=== PATIENT | female | born 1945 | race Caucasian/White ===

== ENCOUNTER 2021-08-03 18:09 | Inpatient (IN) | payer OTHER, MEDICAID, SELFPAY ==
[~2021-08-03] VITALS: Ht 154.9 cm; Wt 69.4 kg
[2021-08-03 18:30] VITALS: BP_SYST 156
--- NOTE | 2021-08-03 18:30 | NUR ---
Patient to ER bed 3 to for evaluation. Side rails up. Report given to Malissa.
--- NOTE | 2021-08-03 18:52 | NUR ---
PT CHARMAINE FROM [facility] FOR RUQ ABD PAIN PER PT SINCE 11AM PT DENIES N/V/D. PT IS AAOX4, V/S STABLE UPON ARRIVAL
--- NOTE | 2021-08-03 18:55 | NUR ---
ER DR. VIRK AT BEDSIDE EXAMINNG PT
--- NOTE | 2021-08-03 19:08 | NUR ---
REPORT GIVEN TO ELBERT MOY FOR CONTINUING CARE
--- NOTE | 2021-08-03 19:20 | NUR ---
# 20 gauge angiocath placed to RAC. Use of asceptic technique. Opsite placed over site. Blood return noted. Blood for lab drawn from site. Flushed with 10 cc of normal saline. No evidence of infiltration noted. Patient tolerated well.
--- NOTE | 2021-08-03 19:24 | NUR ---
COVID-19 swabs collected and sent to lab.
[2021-08-03] MEDS ORDERED: MECL-108 PO (19:36)
[2021-08-03] MEDS ORDERED: METO25TA6 PO (19:36)
[2021-08-03] MEDS ORDERED: METF-834 PO (19:36)
[2021-08-03] MEDS ORDERED: HYDR25TA4 PO (19:36)
[2021-08-03] MEDS ORDERED: DOCU-144 PO (19:36)
[2021-08-03] MEDS ORDERED: LISI20TA30 PO (19:36)
[2021-08-03] MEDS ORDERED: HEPA500015 SUBCUT (19:36)
[2021-08-03] MEDS ORDERED: ACET325T53 PO (19:36)
[2021-08-03] MEDS ORDERED: HYD500 PO (19:36)
[2021-08-03] MEDS ORDERED: PANT20TA2 PO (19:36)
--- NOTE | 2021-08-03 19:36 | NUR ---
Medication reconciliation completed with information provided by patient's documents. Any prior medication reconciliation on file was reviewed and corrected.
[2021-08-03 19:51] LABS: ANION GAP 9 (5-15); CALCIUM 9.4 mg/dL (8.4-11.0); CREATININE 1.21 mg/dL (0.55-1.30); GLUCOSE 120 mg/dL (70-99); POTASSIUM 4.8 mmol/L (3.5-5.1); UREA NITROGEN, BLOOD 22 mg/dL (8-21)
[2021-08-03 19:55] LABS: CHLORIDE 81 mmol/L (98-107); SODIUM SERUM 113 mmol/L (136-145)
[2021-08-03 19:56] LABS: ALANINE AMINOTRANSFERASE 28 U/L (12-78); ASPARTATE AMINOTRANSFERASE 22 U/L (10-37); TOTAL BILIRUBIN 0.4 mg/dL (0.0-1.0)
[2021-08-03 19:57] LABS: ALBUMIN 3.9 g/dL (3.4-4.8); LIPASE 517 U/L (73-393)
[2021-08-03 20:26] LABS: BASOPHILS # (AUTO) 0.1 K/uL (0.0-0.2); LYMPHOCYTES # (AUTO) 1.6 K/uL (1.0-5.5); LYMPHOCYTES % (AUTO) 21.6 % (20.5-51.5); MONOCYTES # (AUTO) 0.5 K/uL (0.0-1.0); NEUTROPHILS # (AUTO) 5.1 K/uL (1.8-7.7); NEUTROPHILS % (AUTO) 68.5 % (40.0-70.0); RED BLOOD CELL COUNT(AUTO) 2.63 MIL/uL (4.2-6.2); WHITE BLOOD COUNT (AUTO) 7.5 K/uL (4.8-10.8)
[2021-08-03 20:35] LABS: BASOPHILS % (AUTO) 0.7 % (0.0-2.0); EOSINOPHILS # (AUTO) 0.1 K/uL (0.0-0.4); HEMATOCRIT 25.3 % (36-48); HEMOGLOBIN 9.1 g/dL (12.0-16.0); MEAN CORPUSCULAR HEMOGLOBIN 35 pg (27-31); MEAN CORPUSCULAR HGB CONC 36 % (32-36); MEAN CORPUSCULAR VOLUME 96 fL (79.0-98.0); MONOCYTES % (AUTO) 7.2 % (1.7-9.3); PLATELET COUNT (AUTO) 575 K/uL (130-430); RED CELL DISTRIBUTION WIDTH 19.2 % (9.0-15.0)
[2021-08-03] MEDS ORDERED: NACL 0.9% 1,000 ML IV ONE (20:45)
--- NOTE | 2021-08-03 20:47 | NUR ---
Marilyn briseno in [facility] - 08/03/21 at 2301 by [email or web address] COVID-19 swabs collected and sent to lab.
--- NOTE | 2021-08-03 21:25 | NUR ---
Returned from radiology, back to [facility].
--- NOTE | 2021-08-03 22:21 | NUR ---
ER Dr. Mcgregor at bedside examining patient.
--- NOTE | 2021-08-03 22:30 | NUR ---
Re-position patient
[2021-08-03] MEDS ORDERED: SODIUM CHLORIDE 3% *HI-ALERT* 500 ML IV ONE (23:45)
[2021-08-03] MEDS ORDERED: DEXTROSE 50% JECT 50 ML DISP.SYRIN IVP PRN (23:45)
[2021-08-04] VITALS (7 sets, daily range): BP systolic 127–152
[2021-08-04] MEDS ORDERED: ACETAMINOPHEN 325 MG TABLET PO PRN
[2021-08-04] MEDS ORDERED: MECLIZINE HCL 25 MG TABLET (ANITVERT) PO PRN
--- NOTE | 2021-08-04 00:05 | NUR ---
Patient will be admitted to care of Dr. Fox. Admitted to TELE unit. Will go to room 112B. Belongings list completed. Complete and up to date summary report printed. SBAR report to be given at bedside with opportunity for questions.
[2021-08-04] MEDS ORDERED: cloNIDine HCL 0.1 MG TABLET PO PRN (00:15)
--- NOTE | 2021-08-04 00:40 | NUR ---
ADMISSION NOTE Received patient from ER via michaelrelliott, received report from DECEMBER RN. Patient admitted with diagnosis of ABDOMINAL PAIN. Patient oriented to hospital routine, call light, toileting and safety-patient verbalized understanding.
[2021-08-04] MEDS ORDERED: SODIUM CHLORIDE 3% *HI-ALERT* 500 ML IV ONE (01:33)
--- NOTE | 2021-08-04 01:55 | NUR ---
INITIAL NOTES PATIENT RESTING, NO SIGNS OF NOTED. CALL LIGHT WITHIN REACH, BED ALARM ON, BED AT LOWEST POSITION, BED LOCKED. FALL, RESPIRATORY, ASPIRATORY, ISOLATION AND SAFETY PRECAUTIONS IN PLACE. DISCUSSED PLAN OF CARE WITH PATIENT, WILL CONTINUE TO MONITOR.
[2021-08-04] MEDS: HEPARIN SODIUM,PORCINE 5,000 UNITS/ML VIAL SUBCUT SCH ×3 (06:29→21:22)
--- NOTE | 2021-08-04 06:59 | NUR ---
CLOSING NOTES PATIENT RESTING, NO SIGNS OF NOTED. CALL LIGHT WITHIN REACH, BED ALARM ON, BED AT LOWEST POSITION, BED LOCKED. FALL, RESPIRATORY, ASPIRATORY, ISOLATION AND SAFETY PRECAUTIONS IN PLACE THROUGHOUT SHIFT. WILL ENDORSE CARE TO ONCOMING SHIFT.
[2021-08-04 07:01] LABS: BASOPHILS # (AUTO) 0.1 K/uL (0.0-0.2); EOSINOPHILS # (AUTO) 0.2 K/uL (0.0-0.4); EOSINOPHILS % (AUTO) 3.7 % (0.0-4.0); HEMATOCRIT 23.3 % (36-48); HEMOGLOBIN 8.4 g/dL (12.0-16.0); LYMPHOCYTES # (AUTO) 1.4 K/uL (1.0-5.5); LYMPHOCYTES % (AUTO) 25.8 % (20.5-51.5); MEAN CORPUSCULAR HEMOGLOBIN 35 pg (27-31); MEAN CORPUSCULAR HGB CONC 36 % (32-36); MEAN CORPUSCULAR VOLUME 97 fL (79.0-98.0); MONOCYTES # (AUTO) 0.5 K/uL (0.0-1.0); MONOCYTES % (AUTO) 9.2 % (1.7-9.3); NEUTROPHILS # (AUTO) 3.3 K/uL (1.8-7.7); NEUTROPHILS % (AUTO) 60.3 % (40.0-70.0); PLATELET COUNT (AUTO) 552 K/uL (130-430); RED BLOOD CELL COUNT(AUTO) 2.39 MIL/uL (4.2-6.2); RED CELL DISTRIBUTION WIDTH 18.6 % (9.0-15.0); WHITE BLOOD COUNT (AUTO) 5.4 K/uL (4.8-10.8)
[2021-08-04 07:35] LABS: ALANINE AMINOTRANSFERASE 28 U/L (12-78); ALBUMIN 3.3 g/dL (3.4-4.8); AMYLASE 82 U/L (0-100); ANION GAP 7 (5-15); ASPARTATE AMINOTRANSFERASE 26 U/L (10-37); CALCIUM 8.6 mg/dL (8.4-11.0); CHLORIDE 90 mmol/L (98-107); CREATININE 1.11 mg/dL (0.55-1.30); GLUCOSE 103 mg/dL (70-99); LIPASE 541 U/L (73-393); POTASSIUM 4.5 mmol/L (3.5-5.1); TOTAL BILIRUBIN 0.5 mg/dL (0.0-1.0); UREA NITROGEN, BLOOD 19 mg/dL (8-21)
[2021-08-04] MEDS ORDERED: DOCUSATE SODIUM 100 MG CAPSULE PO SCH (09:00)
[2021-08-04] MEDS ORDERED: HYDROXYUREA 500 MG CAPSULE (HYDREA) PO SCH (09:00)
[2021-08-04] MEDS: METOPROLOL TARTRATE 25 MG TABLET PO SCH (09:46)
[2021-08-04] MEDS: PANTOPRAZOLE SODIUM 40 MG TAB PO SCH (09:47)
--- NOTE | 2021-08-04 12:18 | NUR ---
Nutrition Update Daniel Scale 15 noted. Pt admitted for hyponatremia w/ acute loss of consciousness. Diet: mechanical soft, CCHO low carb-45 gm BMI: 28.9 kg/m2 RD to follow per nutrition care standards.
[2021-08-04] MEDS ORDERED: MILK OF MAGNESIA 30 ML UDC PO PRN (15:15)
--- NOTE | 2021-08-04 15:45 | NUR ---
Nursing Late Entry due to patient care: 08:00 In bed eyes open. patient speaks Burundian. Does not appear to be in any form of distress. plan of care discussed with patient. will need to follow up to re educate Addendum: 08/04/21 at 1549 by Susan Winston RN 12:00 - remains comfortable. 3% sodium at 3o ml one time dose completed and discontinued. 15:00 - in and out catheterization done aseptic technique to collect urine sample as patient is incontinent
[2021-08-04 16:19] LABS: SODIUM SERUM 122 mmol/L (136-145)
[2021-08-04 18:34] LABS: BILIRUBIN,URINE NEGATIVE (NEGATIVE); BLOOD, URINE NEGATIVE (NEGATIVE); CLARITY/URINE CLEAR (CLEAR); COLOR,URINE YELLOW (YELLOW); GLUCOSE,URINE NEGATIVE (NEGATIVE); KETONES,URINE NEGATIVE (NEGATIVE); NITRITE, URINE NEGATIVE (NEGATIVE); PROTEIN URINE NEGATIVE (NEGATIVE); UROBILINOGEN,URINE 0.2 (0.2-1.0)
[2021-08-04 18:43] LABS: LEUKOCYTE ESTERASE ,URINE TRACE (NEGATIVE)
[2021-08-04 18:44] LABS: BACTERIA,URINE FEW /HPF (None Seen); MUCUS,URINE None Seen /LPF (None Seen); RBC,URINE 0-3 /HPF (0-3)
--- NOTE | 2021-08-04 19:15 | NUR ---
change of shift.pt.presents quiescent affect calm resting viewing tv programming.language barrier extant.pt[s primary langugae pitcairn islander.pt.stated she prefers to communicate pitcairn islander.pt.presents iv access location lt.forearm iv lock.no c/o pain,nausea.general status stable.respiratory status stable unlabored@room air.call light/telephone w/in access of the pt.
--- NOTE | 2021-08-04 19:34 | NUR ---
Pt has been stable then since took over of care . all needs met and attended kaylin. endorsed to night rn.
--- NOTE | 2021-08-04 20:00 | NUR ---
pt.assessed.v/s assessed values wnl;no c/o pain,nausea.i have apprised the pt.that snacks/beverages are available w/in the shift. no requests posited@this hour.pt.assessed for cleanliness pt.repositioned.call light/telephone placed w/in access of the pt.
--- NOTE | 2021-08-04 20:30 | NUR ---
blood glucose assessed value:232mg/dl.
--- NOTE | 2021-08-04 21:00 | NUR ---
2100p medications administered.pt.capable to ingest the po medications w/out difficulty.no c/o pain,nausea.call light/telephone w/in access of the pt.
[2021-08-04] MEDS: DOCUSATE SODIUM 100 MG CAPSULE PO SCH (21:17)
[2021-08-04] MEDS: INSULIN REGULAR, HUMAN 100 UNITS/ML, 10 ML VIAL (humuLIN R) SUBCUT PRN (21:21)
--- NOTE | 2021-08-04 22:00 | NUR ---
pt.assessed.pt.had requested medication cough. paged r/e:pt's requests;medication cough.no c/o pain,nausea. no requests posited@this hour.pt.assessed for cleanliness. pt.repositioned.call light/telephone placed w/in access of the pt.
--- NOTE | 2021-08-04 22:01 | NUR ---
PAGED FOR ORDERS SPOKE TO: DIDIER
[2021-08-04] MEDS ORDERED: guaiFENesin/DEXTROMETHORPHAN 10 ML UDC PO PRN (22:15)
[2021-08-04] MEDS ORDERED: guaiFENesin/DEXTROMETHORPHAN 118 ML PO PRN (22:15)
--- NOTE | 2021-08-04 22:15 | NUR ---
apprised of the pt's requests medication;cough. ordered robitussin dm po 10ml q-6hrs/p;cough.i have administered robitussin.to assess the efficacy of the medication per protocol.
[2021-08-05] VITALS: BP_SYST 148
--- NOTE | 2021-08-05 | NUR ---
pt.assessed.v/s assessed values wnl.no c/o pain,nausea.pt.requested water provided.pt.assessed for cleanliness pt.repositioned.call light/telephone placed w/in access of the pt.
--- NOTE | 2021-08-05 02:00 | NUR ---
pt.assessed.pt.presents quiescent affect calm somnolent per flacc pain mgx pt.absent facial grimaces/body posturing. pt.assessed for cleanliness.pt.repositioned.call light/telephone placed w/in access of the pt.
--- NOTE | 2021-08-05 04:00 | NUR ---
pt.assessed.pt.presents quiescent affect calm,somnolent.per flacc pain mgx pt.absent facial grimaces/body posturing. pt.assessed for cleanliness.pt.repositioned.call light/telephone placed w/in access of the pt.
--- NOTE | 2021-08-05 06:00 | NUR ---
pt.assessed.no c/o pain nausea.pt.repositioned.call light/telephone placed w/in access of the pt.
[2021-08-05] MEDS: HEPARIN SODIUM,PORCINE 5,000 UNITS/ML VIAL SUBCUT SCH ×3 (06:55→21:12)
[2021-08-05 06:57] LABS: BASOPHILS # (AUTO) 0.1 K/uL (0.0-0.2); BASOPHILS % (AUTO) 0.9 % (0.0-2.0); EOSINOPHILS # (AUTO) 0.2 K/uL (0.0-0.4); EOSINOPHILS % (AUTO) 3.8 % (0.0-4.0); HEMATOCRIT 26.7 % (36-48); HEMOGLOBIN 9.4 g/dL (12.0-16.0); LYMPHOCYTES # (AUTO) 1.5 K/uL (1.0-5.5); LYMPHOCYTES % (AUTO) 26.7 % (20.5-51.5); MEAN CORPUSCULAR HEMOGLOBIN 34 pg (27-31); MEAN CORPUSCULAR HGB CONC 35 % (32-36); MEAN CORPUSCULAR VOLUME 98 fL (79.0-98.0); MONOCYTES # (AUTO) 0.6 K/uL (0.0-1.0); MONOCYTES % (AUTO) 10.5 % (1.7-9.3); NEUTROPHILS # (AUTO) 3.4 K/uL (1.8-7.7); NEUTROPHILS % (AUTO) 58.1 % (40.0-70.0); PLATELET COUNT (AUTO) 568 K/uL (130-430); RED BLOOD CELL COUNT(AUTO) 2.73 MIL/uL (4.2-6.2); RED CELL DISTRIBUTION WIDTH 18.8 % (9.0-15.0); WHITE BLOOD COUNT (AUTO) 5.8 K/uL (4.8-10.8)
[2021-08-05 07:24] LABS: ALANINE AMINOTRANSFERASE 26 U/L (12-78); ALBUMIN 3.3 g/dL (3.4-4.8); ANION GAP 6 (5-15); ASPARTATE AMINOTRANSFERASE 20 U/L (10-37); CHLORIDE 89 mmol/L (98-107); CHOLESTEROL 169 mg/dL (<200); CREATININE 1.12 mg/dL (0.55-1.30); FREE T4 (FREE THYROXINE) 0.8 ng/dL (0.6-1.6); GLUCOSE 119 mg/dL (70-99); HDL CHOLESTEROL 51 mg/dL (>55); LDL CHOLESTEROL 91 mg/dL (<100); LIPASE 811 U/L (73-393); POTASSIUM 4.7 mmol/L (3.5-5.1); SODIUM SERUM 120 mmol/L (136-145); TOTAL BILIRUBIN 0.1 mg/dL (0.0-1.0); TRIGLYCERIDES 113 mg/dL (30-150); UREA NITROGEN, BLOOD 18 mg/dL (8-21)
--- NOTE | 2021-08-05 07:40 | NUR ---
OPENING NOTE Received shift report from warehouse supervisor 3rd shift RN. Patient currently resting in bed and respirations remain even and non-labored on room air. IV is patent and saline-locked. Bed locked in lowest position and call light is within reach. Will continue to monitor.
[2021-08-05 07:59] LABS: TOTAL IRON BIND. CAPACITY 292 ug/dL (250-450)
[2021-08-05 08:03] VITALS: BP_SYST 134
[2021-08-05] MEDS: METOPROLOL TARTRATE 25 MG TABLET PO SCH (09:48)
[2021-08-05] MEDS: DOCUSATE SODIUM 100 MG CAPSULE PO SCH ×2 (09:48→21:11)
[2021-08-05] MEDS: PANTOPRAZOLE SODIUM 40 MG TAB PO SCH (09:48)
[2021-08-05] MEDS: INSULIN REGULAR, HUMAN 100 UNITS/ML, 10 ML VIAL (humuLIN R) SUBCUT PRN ×3 (10:59→21:13)
[2021-08-05] MEDS ORDERED: SODIUM CHLORIDE 500 MG TABLET PO ONE (14:00)
[2021-08-05 15:28] LABS: ANION GAP 9 (5-15); CALCIUM 8.9 mg/dL (8.4-11.0); CHLORIDE 91 mmol/L (98-107); CREATININE 1.16 mg/dL (0.55-1.30); GLUCOSE 150 mg/dL (70-99); SODIUM SERUM 124 mmol/L (136-145); UREA NITROGEN, BLOOD 19 mg/dL (8-21)
[2021-08-05 16:00] VITALS: BP_SYST 160
[2021-08-05] MEDS: SODIUM CHLORIDE 500 MG TABLET PO SCH ×2 (16:36→21:11)
--- NOTE | 2021-08-05 19:13 | NUR ---
CLOSING NOTE Patient currently resting in bed and respirations remain even and non-labored on room air. IV is patent and saline-locked. Bed locked in lowest position and call light is within reach. All needs met throughout shift. Will endorse to shift supervisor melting RN.
--- NOTE | 2021-08-05 19:50 | NUR ---
OPENING NOTED PATIENT RESTING IN BED WITH NOTED SIGNS OF DISTRESS. SHE IS ON ROOM WITH IS NO SIGNS OF LABORED BREATHING. PATIENT WAS GIVEN INFORMATION ON STAFFING FOR THE NIGHT ALONG WITH CALL LIGHT. SIDE RAIL OF THE BED UP AND BED PLACED IN THE LOWEST POSITION.
[2021-08-05 20:00] VITALS: BP_SYST 117
--- NOTE | 2021-08-05 20:40 | NUR ---
MEDICATION VITALS TAKEN AND MEDICATION WAS GIVEN. PATIENT REQUIRES PILLS TO BE GIVEN ONE AT A TIME WITH MULTIPLE SIPS OF WATER GIVEN BETWEEN EACH PILL. TOLERATED PILLS WITH NO ISSUES.
[2021-08-05] MEDS ORDERED: SODIUM CHLORIDE 500 MG TABLET PO SCH (21:00)
[2021-08-06] VITALS: BP_SYST 139
--- NOTE | 2021-08-06 00:20 | NUR ---
HOURLY CHECKS PATIENT CHECKED ON EVERY HOUR NOTED TO BE RESTING IN BED. MIDNIGHT VITALS TAKEN AND NOTED TO BE WITHIN NORMAL LIMITS.
[2021-08-06 00:39] VITALS: BP_SYST 161
[2021-08-06] MEDS: HEPARIN SODIUM,PORCINE 5,000 UNITS/ML VIAL SUBCUT SCH ×3 (06:00→23:10)
--- NOTE | 2021-08-06 06:04 | NUR ---
CLOSING NOTE PATIENT RESTING IN BED NO NOTED SIGNS OF DISTRESS. BS WAS 158 WITH NO COVERAGE NEEDED. TOLERATED ALL TREATMENT AND PATIENT WAS SHANTEL TO FALL BACK ASLEEP.
[2021-08-06 07:37] LABS: BASOPHILS # (AUTO) 0.1 K/uL (0.0-0.2); BASOPHILS % (AUTO) 0.9 % (0.0-2.0); EOSINOPHILS # (AUTO) 0.2 K/uL (0.0-0.4); EOSINOPHILS % (AUTO) 3.7 % (0.0-4.0); HEMATOCRIT 25.8 % (36-48); HEMOGLOBIN 9.1 g/dL (12.0-16.0); LYMPHOCYTES # (AUTO) 1.7 K/uL (1.0-5.5); LYMPHOCYTES % (AUTO) 25.2 % (20.5-51.5); MEAN CORPUSCULAR HEMOGLOBIN 35 pg (27-31); MEAN CORPUSCULAR HGB CONC 36 % (32-36); MEAN CORPUSCULAR VOLUME 98 fL (79.0-98.0); MONOCYTES # (AUTO) 0.5 K/uL (0.0-1.0); MONOCYTES % (AUTO) 8.3 % (1.7-9.3); NEUTROPHILS # (AUTO) 4.1 K/uL (1.8-7.7); NEUTROPHILS % (AUTO) 61.9 % (40.0-70.0); PLATELET COUNT (AUTO) 544 K/uL (130-430); RED BLOOD CELL COUNT(AUTO) 2.63 MIL/uL (4.2-6.2); RED CELL DISTRIBUTION WIDTH 18.9 % (9.0-15.0); WHITE BLOOD COUNT (AUTO) 6.6 K/uL (4.8-10.8)
[2021-08-06 08:00] VITALS: BP_SYST 150
[2021-08-06 08:22] LABS: ALANINE AMINOTRANSFERASE 22 U/L (12-78); ALBUMIN 3.5 g/dL (3.4-4.8); ANION GAP 8 (5-15); ASPARTATE AMINOTRANSFERASE 16 U/L (10-37); CHLORIDE 93 mmol/L (98-107); CREATININE 1.18 mg/dL (0.55-1.30); GLUCOSE 135 mg/dL (70-99); LIPASE 1002 U/L (73-393); POTASSIUM 4.8 mmol/L (3.5-5.1); SODIUM SERUM 125 mmol/L (136-145); TOTAL BILIRUBIN 0.3 mg/dL (0.0-1.0); UREA NITROGEN, BLOOD 22 mg/dL (8-21)
[2021-08-06] MEDS: DOCUSATE SODIUM 100 MG CAPSULE PO SCH ×2 (10:33→10:50)
[2021-08-06] MEDS: SODIUM CHLORIDE 500 MG TABLET PO SCH ×4 (10:34→23:08)
[2021-08-06] MEDS: PANTOPRAZOLE SODIUM 40 MG TAB PO SCH ×2 (10:35→10:50)
[2021-08-06] MEDS: METOPROLOL TARTRATE 25 MG TABLET PO SCH ×2 (10:38→23:08)
--- NOTE | 2021-08-06 11:11 | NUR ---
OPENING NOTE Received shift report from charge out clerk RN. Patient currently resting in bed and respirations remain even and non-labored on room air. IV is patent and saline-locked. Bed locked in lowest position and call light is within reach. Will continue to monitor.
--- NOTE | 2021-08-06 11:54 | NUR ---
REFUSED MEDICATION Patient refused Colace and Protonix. Reinforced education about importance of medications. Patient still continues to refuse medication but took Sodium Chloride tablets and Lopressor. Noted and will continue to monitor and reinforce education.
[2021-08-06] MEDS: INSULIN REGULAR, HUMAN 100 UNITS/ML, 10 ML VIAL (humuLIN R) SUBCUT PRN ×2 (12:39→23:11)
--- NOTE | 2021-08-06 15:15 | NUR ---
REFUSED REPOSITIONING Offered patient repositioning in bed to relieve pressure on backside. Patient declined. Educated patient in Faroese on importance of turning to prevent pressure injuries. Patient continued to decline. Will continue to monitor and reinforce education.
[2021-08-06] MEDS ORDERED: FUROSEMIDE 20 MG TABLET PO ONE (15:45)
[2021-08-06 16:00] VITALS: BP_SYST 153
--- NOTE | 2021-08-06 16:27 | NUR ---
CONSULTATION PAGED REASON FOR CONSULTATION:PANCREATITIS WAS CONSULT CALLED?Y PERSON WHO WAS NOTIFIED:KINA CONSULTING PHYSICIAN:DANIEL LYNNE ADAM ON CALL0 STREAMING MEDIA SPECIALIST SPECIALTY:GI STREAMING MEDIA SPECIALIST PHONE NUMBER:[phone] REQUESTING PHYSICIAN:THIAGO MARKS
--- NOTE | 2021-08-06 18:56 | NUR ---
CLOSING NOTE Patient currently resting in bed and respirations remain even and non-labored on room air. IV is patent and saline-locked. Bed locked in lowest position and call light is within reach. All needs met throughout shift. Will endorse to extension educator RN.
[2021-08-06 20:00] VITALS: BP_SYST 147
[2021-08-07 00:05] VITALS: BP_SYST 125
[2021-08-07] MEDS: HEPARIN SODIUM,PORCINE 5,000 UNITS/ML VIAL SUBCUT SCH ×3 (05:37→21:34)
[2021-08-07 06:58] LABS: BASOPHILS # (AUTO) 0.1 K/uL (0.0-0.2); BASOPHILS % (AUTO) 0.8 % (0.0-2.0); EOSINOPHILS # (AUTO) 0.2 K/uL (0.0-0.4); HEMATOCRIT 28.5 % (36-48); LYMPHOCYTES # (AUTO) 2.4 K/uL (1.0-5.5); LYMPHOCYTES % (AUTO) 30.5 % (20.5-51.5); MEAN CORPUSCULAR HEMOGLOBIN 34 pg (27-31); MEAN CORPUSCULAR HGB CONC 35 % (32-36); MEAN CORPUSCULAR VOLUME 98 fL (79.0-98.0); MONOCYTES # (AUTO) 0.6 K/uL (0.0-1.0); MONOCYTES % (AUTO) 8.1 % (1.7-9.3); NEUTROPHILS # (AUTO) 4.6 K/uL (1.8-7.7); NEUTROPHILS % (AUTO) 57.6 % (40.0-70.0); PLATELET COUNT (AUTO) 646 K/uL (130-430); RED BLOOD CELL COUNT(AUTO) 2.91 MIL/uL (4.2-6.2); RED CELL DISTRIBUTION WIDTH 19.2 % (9.0-15.0)
--- NOTE | 2021-08-07 08:00 | NUR ---
AM NOTES BRITISH SPEAKING, CRYING, USED HOUSING QUALITY STANDARD INSPECTOR, REFUSED TO BE TURNED, REFUSED PILLOWS, WILL NOT STOP CRYING IF YOU PUT PILLOW ON HER SIDE. PATIENT IS INCONTINENT, GOOD PERICARE PROVIDED.REFUSED BREAKFAST AT THIS TIME.
[2021-08-07 08:27] LABS: ALANINE AMINOTRANSFERASE 26 U/L (12-78); ANION GAP 9 (5-15); ASPARTATE AMINOTRANSFERASE 15 U/L (10-37); CALCIUM 9.4 mg/dL (8.4-11.0); CHLORIDE 94 mmol/L (98-107); CREATININE 1.23 mg/dL (0.55-1.30); GLUCOSE 134 mg/dL (70-99); LIPASE 1216 U/L (73-393); SODIUM SERUM 127 mmol/L (136-145); TOTAL BILIRUBIN 0.2 mg/dL (0.0-1.0); UREA NITROGEN, BLOOD 21 mg/dL (8-21)
[2021-08-07] MEDS: DOCUSATE SODIUM 100 MG CAPSULE PO SCH ×2 (08:39→21:31)
[2021-08-07] MEDS: FUROSEMIDE 20 MG TABLET PO SCH (08:40)
[2021-08-07] MEDS: SODIUM CHLORIDE 500 MG TABLET PO SCH ×4 (08:41→21:29)
[2021-08-07] MEDS: METOPROLOL TARTRATE 25 MG TABLET PO SCH ×2 (08:41→21:29)
[2021-08-07] MEDS: PANTOPRAZOLE SODIUM 40 MG TAB PO SCH (08:42)
[2021-08-07 08:57] VITALS: BP_SYST 150
--- NOTE | 2021-08-07 10:00 | NUR ---
ATE BREAKFAST ATE BREAKFAST BUT STILL REFUSED TO BE TURN, CRIED WHEN NEEDS ARE NOT MET.
[2021-08-07 11:22] VITALS: BP_SYST 127
[2021-08-07] MEDS: INSULIN REGULAR, HUMAN 100 UNITS/ML, 10 ML VIAL (humuLIN R) SUBCUT PRN (12:08)
[2021-08-07] MEDS ORDERED: QUEtiapine FUMARATE 25 MG TABLET PO ONE (14:00)
--- NOTE | 2021-08-07 15:00 | NUR ---
DR ROBBINS ORDERED SEROQUEL ORDERED SEROQUEL DUE TO BEHAVIOU OF LOUD CRYING IF NEEDS IS NOT MET.
[2021-08-07 15:38] VITALS: BP_SYST 120
--- NOTE | 2021-08-07 18:40 | NUR ---
UNABLE TO CONTACT FAMILY FOR CONSENT FOR MRI PATIENT IS CONFUSED, CHILEAN SPEAKING, LEFT MESSAGE TO FAMILY MEMBER WHO IS ON EMERGENCY CONTACT TO CALL BACK FOR MRI CHECKLIST.
--- NOTE | 2021-08-07 19:00 | NUR ---
PATIENT`AAOX4. LUNGS BILATERALLY CLEAR. ABDOMEN SOFT AND NON DISTENDED. HAS IV ACCESS ON THE RIGHT FOREARM #20G. STARTED ON D5/12 NS AT 75CC/HR INFUSING ON WELL. HAS DRESSING ON THE LEFT KNEE. ABLE TO WIGGLE HIS TOES. NO PAIN NOTED. WILL CONTINUE TO MONITOR PATIENTS STATUS. SLURRED SPEECH NOTED. MRCP PENDING PER CHECK LIST. LIPASE NOTED 1002. DR. DE ANDA AWARE. PATIENT RECEPTIVE TO MEDICAL PLAN OF CARE, MEDICATION REGIMEN AND FALL AND SAFETY INTERVENTIONS. NO ACUTE DISTRESS NOTED. ONGOING MEDICAL CARE NOTED. VSS.
[2021-08-07] MEDS: QUEtiapine FUMARATE 25 MG TABLET PO SCH (21:29)
--- NOTE | 2021-08-08 | NUR ---
PATIENT SLEEPING DURING ROUNDING, EASILY AROUSED. PT ASSISTED WITH ADL'S AND REPOSITIONING. NO ACUTE DISTRESS NOTED. RN TO CONTINUE WITH MEDICAL PLAN OF CARE.
[2021-08-08 00:37] VITALS: BP_SYST 122
[2021-08-08 04:00] VITALS: BP_SYST 130
[2021-08-08] MEDS: HEPARIN SODIUM,PORCINE 5,000 UNITS/ML VIAL SUBCUT SCH ×3 (06:19→21:05)
[2021-08-08 06:44] LABS: BASOPHILS # (AUTO) 0.1 K/uL (0.0-0.2); BASOPHILS % (AUTO) 1.1 % (0.0-2.0); EOSINOPHILS # (AUTO) 0.3 K/uL (0.0-0.4); EOSINOPHILS % (AUTO) 3.6 % (0.0-4.0); LYMPHOCYTES # (AUTO) 2.2 K/uL (1.0-5.5); LYMPHOCYTES % (AUTO) 29.6 % (20.5-51.5); MEAN CORPUSCULAR HEMOGLOBIN 35 pg (27-31); MEAN CORPUSCULAR HGB CONC 36 % (32-36); MEAN CORPUSCULAR VOLUME 98 fL (79.0-98.0); MONOCYTES # (AUTO) 0.7 K/uL (0.0-1.0); MONOCYTES % (AUTO) 10.2 % (1.7-9.3); NEUTROPHILS # (AUTO) 4.1 K/uL (1.8-7.7); NEUTROPHILS % (AUTO) 55.5 % (40.0-70.0); PLATELET COUNT (AUTO) 589 K/uL (130-430); RED BLOOD CELL COUNT(AUTO) 2.85 MIL/uL (4.2-6.2); WHITE BLOOD COUNT (AUTO) 7.3 K/uL (4.8-10.8)
[2021-08-08 07:46] LABS: ANION GAP 9 (5-15); CALCIUM 9.4 mg/dL (8.4-11.0); CHLORIDE 95 mmol/L (98-107); CREATININE 1.24 mg/dL (0.55-1.30); GLUCOSE 158 mg/dL (70-99); LIPASE 944 U/L (73-393); POTASSIUM 4.9 mmol/L (3.5-5.1); SODIUM SERUM 129 mmol/L (136-145); UREA NITROGEN, BLOOD 24 mg/dL (8-21)
--- NOTE | 2021-08-08 08:51 | NUR ---
PHYSICAL THERAPY CO-SIGN The Physical Therapy Progress Notes documented by Patient Accounts Manager have been reviewed. Reviewed/Co-Signed by: Jeanmarie Menjivar Documentation Done by: RUBINA LEVY PTA Addendum: 08/08/21 at 0852 by Jeanmarie Menjivar PT Amended: Links added.
[2021-08-08] MEDS: DOCUSATE SODIUM 100 MG CAPSULE PO SCH ×2 (09:01→20:59)
[2021-08-08] MEDS: FUROSEMIDE 20 MG TABLET PO SCH (09:08)
[2021-08-08] MEDS: METOPROLOL TARTRATE 25 MG TABLET PO SCH ×2 (09:09→20:59)
[2021-08-08] MEDS: SODIUM CHLORIDE 500 MG TABLET PO SCH ×4 (09:09→20:59)
[2021-08-08] MEDS: QUEtiapine FUMARATE 25 MG TABLET PO SCH ×2 (09:09→20:59)
[2021-08-08] MEDS: PANTOPRAZOLE SODIUM 40 MG TAB PO SCH (09:09)
--- NOTE | 2021-08-08 10:52 | NUR ---
Dietitian Recommendations *Recommend: advance diet when able: Mechanical soft CCHO Cardiac diet w/ Glucerna BID. ONS will provide additional 440 kcal, 20gm protein daily. Please see Nutritional Assessment for details. JAMES, BEV
[2021-08-08] MEDS ORDERED: LORazepam 2 MG/ML VIAL IVP ONE (12:00)
--- NOTE | 2021-08-08 12:05 | NUR ---
MD called at this time, placed ativan ivp in computer for patient to complete MRI. will notify MRI. patient uncooperative with MRI this am. was notified.
[2021-08-08 12:30] VITALS: BP_SYST 161
[2021-08-08] MEDS: INSULIN REGULAR, HUMAN 100 UNITS/ML, 10 ML VIAL (humuLIN R) SUBCUT PRN (12:35)
--- NOTE | 2021-08-08 13:40 | NUR ---
Karuna BOSWELL medicated patient with Ativan IVP. notified RN that patient needs ativan for MRI. Spoke with Galen from MRI and states agricultural engineering technician gone for the day.
--- NOTE | 2021-08-08 14:24 | NUR ---
Nursing Patient is scheduled to have MRI today. Patient is very agitated. Ativan 1 mg IV was given to the patient to prep her for MRI. ELBERT Marsh followed up re MRI and informed weight loss centre manager that MRI is gone for the day. patient is relaxed as of writting, bp 100/64, resp 16, o2 sat 99 on romm air. will ciontinue to monitor
--- NOTE | 2021-08-08 16:28 | NUR ---
Attempted to see Pt for PT, but Pt was sleeping secondary to being agitated prior and was given Ativan, per RN. RN states Pt is not cleared for PT at this time. Will attempt PT another day.
[2021-08-08 18:06] VITALS: BP_SYST 125
[2021-08-08 20:00] VITALS: BP_SYST 150
--- NOTE | 2021-08-08 22:46 | NUR ---
PATIENT YELLING UNCONSOLABLE PAGING Dr. Fox at this time
--- NOTE | 2021-08-08 22:58 | NUR ---
NOTIFIED DR. ROBBINS ORDERS TO GIVE SEROQUEL 25MG PO NOW ONCE, but if patient is still unconconsolable after 2 hours, administer seroquel 25mg PO ONCE. Also orders to discontinue NPO as of this time and to resume old diet. Also states that patient should be NPO at 3AM since patient does not need to be NPO the whole night for an upcoming MRCP in the morning.
[2021-08-08] MEDS ORDERED: QUEtiapine FUMARATE 25 MG TABLET PO ONE ×2 (23:00→23:30)
--- NOTE | 2021-08-09 | NUR ---
ROUNDING NOTES Patient resting in bed - no s/s pain or distress noted. Respirations even and unlabored - head of bed elevated. IV site patent - no s/s redness, infection, or infiltration. Bed locked and in lowest position. Call light within reach - bed alarm on.
[2021-08-09 01:33] VITALS: BP_SYST 156
--- NOTE | 2021-08-09 02:00 | NUR ---
ROUNDING NOTES Patient resting in bed - no s/s pain or distress noted. Respirations even and unlabored - head of bed elevated. IV site patent - no s/s redness, infection, or infiltration. Bed locked and in lowest position. Call light within reach - bed alarm on. Addendum: 08/09/21 at 0705 by Agustin Willoughby RN At this time patient did not want to eat. patient was asked in bulgarian - hits spoon of applesauce away multiple times. will try again later
[2021-08-09] MEDS: HEPARIN SODIUM,PORCINE 5,000 UNITS/ML VIAL SUBCUT SCH ×3 (06:05→21:52)
[2021-08-09] MEDS: INSULIN REGULAR, HUMAN 100 UNITS/ML, 10 ML VIAL (humuLIN R) SUBCUT PRN ×2 (06:13→21:51)
--- NOTE | 2021-08-09 07:05 | NUR ---
CLOSING NOTES Patient resting in bed - no s/s pain or distress noted. Respirations even and unlabored - head of bed elevated. IV site patent - no s/s redness, infection, or infiltration. Bed locked and in lowest position. Call light within reach - bed alarm on. Patient cleaned and linens changed at approximately 0530
[2021-08-09 07:22] LABS: BASOPHILS % (AUTO) 0.7 % (0.0-2.0); EOSINOPHILS # (AUTO) 0.1 K/uL (0.0-0.4); EOSINOPHILS % (AUTO) 2.1 % (0.0-4.0); HEMATOCRIT 28.7 % (36-48); HEMOGLOBIN 10.3 g/dL (12.0-16.0); LYMPHOCYTES # (AUTO) 0.9 K/uL (1.0-5.5); LYMPHOCYTES % (AUTO) 13.9 % (20.5-51.5); MEAN CORPUSCULAR HEMOGLOBIN 35 pg (27-31); MEAN CORPUSCULAR HGB CONC 36 % (32-36); MEAN CORPUSCULAR VOLUME 99 fL (79.0-98.0); MONOCYTES # (AUTO) 0.6 K/uL (0.0-1.0); MONOCYTES % (AUTO) 8.5 % (1.7-9.3); NEUTROPHILS % (AUTO) 74.8 % (40.0-70.0); PLATELET COUNT (AUTO) 549 K/uL (130-430); RED BLOOD CELL COUNT(AUTO) 2.91 MIL/uL (4.2-6.2); RED CELL DISTRIBUTION WIDTH 18.9 % (9.0-15.0); WHITE BLOOD COUNT (AUTO) 6.7 K/uL (4.8-10.8)
[2021-08-09 07:29] LABS: ALANINE AMINOTRANSFERASE 24 U/L (12-78); ALBUMIN 3.7 g/dL (3.4-4.8); ANION GAP 9 (5-15); ASPARTATE AMINOTRANSFERASE 14 U/L (10-37); CALCIUM 9.1 mg/dL (8.4-11.0); CHLORIDE 96 mmol/L (98-107); CREATININE 1.12 mg/dL (0.55-1.30); GLUCOSE 160 mg/dL (70-99); LIPASE 683 U/L (73-393); POTASSIUM 4.6 mmol/L (3.5-5.1); SODIUM SERUM 129 mmol/L (136-145); TOTAL BILIRUBIN 0.4 mg/dL (0.0-1.0); UREA NITROGEN, BLOOD 21 mg/dL (8-21)
[2021-08-09] MEDS: FUROSEMIDE 20 MG TABLET PO SCH (09:00)
[2021-08-09] MEDS: METOPROLOL TARTRATE 25 MG TABLET PO SCH ×2 (09:00→21:00)
[2021-08-09] MEDS: DOCUSATE SODIUM 100 MG CAPSULE PO SCH ×2 (09:00→21:00)
[2021-08-09] MEDS: QUEtiapine FUMARATE 25 MG TABLET PO SCH ×2 (09:00→21:00)
[2021-08-09] MEDS: SODIUM CHLORIDE 500 MG TABLET PO SCH ×4 (09:00→21:00)
[2021-08-09] MEDS: PANTOPRAZOLE SODIUM 40 MG TAB PO SCH (09:00)
[2021-08-09] MEDS ORDERED: LORazepam 2 MG/ML VIAL ONE (09:15)
[2021-08-09] MEDS ORDERED: LORazepam 2 MG/ML VIAL IVP ONE (09:15)
[2021-08-09 12:31] VITALS: BP_SYST 120
--- NOTE | 2021-08-09 13:52 | NUR ---
Late entry 09:15 HIGH ALERT NOTE: Called Dr. Fox back identified within the medical roster to verify physician authenticity for ativan one time order.
[2021-08-09] MEDS ORDERED: BLOO-1360 XX (14:15)
[2021-08-09] MEDS ORDERED: SER25 PO (14:15)
[2021-08-09] MEDS ORDERED: CLON0.1T PO (14:15)
[2021-08-09] MEDS ORDERED: METO25TA6 PO (14:15)
[2021-08-09] MEDS ORDERED: MECL-160 PO (14:15)
[2021-08-09] MEDS ORDERED: MOM PO (14:15)
[2021-08-09] MEDS ORDERED: SSREG SUBCUT (14:15)
[2021-08-09] MEDS ORDERED: FURO-150 PO (14:15)
[2021-08-09] MEDS ORDERED: DOCU-144 PO (14:15)
[2021-08-09] MEDS ORDERED: SODI1TAB24 PO (14:15)
[2021-08-09 16:32] VITALS: BP_SYST 125
[2021-08-09 20:00] VITALS: BP_SYST 123
--- NOTE | 2021-08-09 23:15 | NUR ---
TRANSFER OF CARE Given to Leeann BOSWELL at this time. Report given.
[2021-08-10 01:03] VITALS: BP_SYST 160
[2021-08-10] MEDS: HEPARIN SODIUM,PORCINE 5,000 UNITS/ML VIAL SUBCUT SCH (05:50)
[2021-08-10 08:00] VITALS: BP_SYST 140
--- NOTE | 2021-08-10 08:15 | NUR ---
OPENING NOTE AWAKE AND ORIENTED. NO SHORTNESS OF BREATH ON ROOM AIR. DENIES ANY PAIN. SERVED WITH BREAKFAST. PATIENT WANTS TO GO HOME. EXPLAINED PLAN OF CARE. SAFETY CHECKS DONE. CALL LIGHT WITHIN REACH. WILL MONITOR.
[2021-08-10] MEDS: FUROSEMIDE 20 MG TABLET PO SCH (09:36)
[2021-08-10] MEDS: PANTOPRAZOLE SODIUM 40 MG TAB PO SCH (09:37)
[2021-08-10] MEDS: METOPROLOL TARTRATE 25 MG TABLET PO SCH (09:38)
[2021-08-10] MEDS: QUEtiapine FUMARATE 25 MG TABLET PO SCH (09:38)
[2021-08-10] MEDS: DOCUSATE SODIUM 100 MG CAPSULE PO SCH (09:38)
[2021-08-10] MEDS: SODIUM CHLORIDE 500 MG TABLET PO SCH ×2 (09:38→11:58)
--- NOTE | 2021-08-10 09:49 | NUR ---
MED PASS EXPLAINED USE OF ALL MEDICATIONS USING A PROPERTY DISPOSAL MANAGER ON THE BLUE PHONE. PATIENT VERBALIZED UNDERSTANDING. PATIENT TOOK ALL HER PO MEDICATIONS.
[2021-08-10] MEDS: INSULIN REGULAR, HUMAN 100 UNITS/ML, 10 ML VIAL (humuLIN R) SUBCUT PRN (11:53)
--- NOTE | 2021-08-10 11:57 | NUR ---
Discharge Planning: DCP faxed to [facility] [phone] DCP to follow up Addendum: 08/10/21 at 1241 by Marleni Lo DP DCP received Rm 35B at [facility] [phone]. Addendum: 08/10/21 at 1357 by Marleni Lo DP DCP arranged transport with [facility] [phone] BLS 3:15pm to [facility] [phone] Rm 35B. Patient packet taken to nurse station. Disposition
[2021-08-10 12:00] VITALS: BP_SYST 139
[2021-08-10 12:53] LABS: ANION GAP 8 (5-15); CALCIUM 9.2 mg/dL (8.4-11.0); CHLORIDE 95 mmol/L (98-107); CREATININE 1.54 mg/dL (0.55-1.30); GLUCOSE 253 mg/dL (70-99); POTASSIUM 4.6 mmol/L (3.5-5.1); SODIUM SERUM 126 mmol/L (136-145); UREA NITROGEN, BLOOD 34 mg/dL (8-21)
[2021-08-10 14:53] VITALS: BP_SYST 139
== END 2021-08-10 15:40 | DRG 438 ==
LOC: SED 18:09 → STU 23:41 → SMU 08-07 15:48
PROVIDERS: ADMIT Internal Medicine; ATTEND Internal Medicine
DX: K85.90 Acute pancreatitis without necrosis or infection, unspecified (principal); G93.41 Metabolic encephalopathy; E87.1 Hypo-osmolality and hyponatremia; F03.90 Unspecified dementia, unspecified severity, without behavioral disturbance, psychotic disturbance, mood disturbance, and anxiety; K21.9 Gastro-esophageal reflux disease without esophagitis; I10 Essential (primary) hypertension; K59.09 Other constipation; I44.7 Left bundle-branch block, unspecified; E11.9 Type 2 diabetes mellitus without complications; Z20.822 Contact with and (suspected) exposure to COVID-19; D63.8 Anemia in other chronic diseases classified elsewhere; Z88.0 Allergy status to penicillin; Z79.899 Other long term (current) drug therapy; Z79.1 Long term (current) use of non-steroidal anti-inflammatories (NSAID)
CPT/HCPCS: 36415; 71045; 74181; 76376; 76700-TC; 80048; 80053; 80061; 81000; 82150; 82533; 82570; 82607; 82962; 83540; 83550; 83605; 83690; 83880; 83930; 83935; 84302; 84439; 85025; 87081; 93005; 96360; 97110-GP; 97116-GP; 97163-GP; 97530-GP; 99285; G0378; J1644; J1815; J2060; J3490